=== PATIENT | female | born 1990 | race American Indian/Alaskan Native ===

== ENCOUNTER 2016-10-03 22:16 | Emergency (ER) | payer OTHER ==
[2016-10-03 22:31] VITALS: BMI 28.9
[2016-10-03] MEDS ORDERED: Sodium Chloride 0.9% 1,000 ML IV STA (22:39)
--- NOTE | 2016-10-03 22:40 | ED PDOC ---
Arrival/HPI - General Chief Complaint: GI Problem Time Seen by Provider: 10/03/16 22:18 Historian: Patient - History of Present Illness Narrative History of Present Illness (Text): 10/03/16 22:36 Rolando Dobbisn is a 26 year old female, whose past medical history includes cholecystectomy, who presents to the ED complaining of abdominal cramping since 05:00 this morning. Patient also reports she has been experiencing associated nausea and vomiting. Patient states she had steak for dinner the evening prior. Patient denies any fever, chills, chest pain, shortness of breath, urinary symptoms, back pain, neck pain, headache, dizziness, or any other complaints. Time/Duration: Other (05:00 this morning) Symptom Onset: Gradual Symptom Course: Unchanged Quality: Cramping Activities at Onset: Light, Eating Context: Home Past Medical History - Provider Review Nursing Documentation Reviewed: Yes - Infectious Disease Hx of Infectious Diseases: None - Psychiatric Hx Substance Use: No - Surgical History Hx Cholecystectomy: Yes - Anesthesia Hx Anesthesia: Yes Hx Anesthesia Reactions: No Hx Malignant Hyperthermia: No Family/Social History - Physician Review Nursing Documentation Reviewed: Yes Family/Social History: No Known Family HX Smoking Status: Never Smoked Hx Alcohol Use: No Hx Substance Use: No Allergies/Home Meds Allergies/Adverse Reactions: Allergies No Known Allergies Allergy (Verified 10/03/16 22:31) Review of Systems - Physician Review All systems were reviewed & negative as marked: Yes - Review of Systems Constitutional: Normal. absent: Fevers Eyes: Normal ENT: Normal Respiratory: Normal. absent: SOB, Cough Cardiovascular: Normal. absent: Chest Pain Gastrointestinal: Abdominal Pain, Nausea, Vomiting Genitourinary Female: Normal. absent: Dysuria, Frequency, Hematuria, Urine Output Changes Musculoskeletal: Normal. absent: Back Pain, Neck Pain Skin: Normal. absent: Rash Neurological: Normal. absent: Headache, Dizziness Endocrine: Normal Hemo/Lymphatic: Normal Psychiatric: Normal Physical Exam Vital Signs Reviewed: Yes Vital Signs Temp Pulse Resp BP Pulse Ox 10/04/16 01:00 73 17 96/54 L 99 10/03/16 22:42 98.6 F 83 18 104/53 L 100 Temperature: Afebrile Blood Pressure: Normal Pulse: Regular Respiratory Rate: Normal Appearance: Positive for: Well-Appearing, Non-Toxic, Comfortable Pain Distress: None Mental Status: Positive for: Alert and Oriented X 3 - Systems Exam Head: Present: Atraumatic, Normocephalic Pupils: Present: PERRL Extroacular Muscles: Present: EOMI Conjunctiva: Present: Normal Mouth: Present: Moist Mucous Membranes Neck: Present: Normal Range of Motion Respiratory/Chest: Present: Clear to Auscultation, Good Air Exchange. No: Respiratory Distress, Accessory Muscle Use Cardiovascular: Present: Regular Rate and Rhythm, Normal S1, S2. No: Murmurs Abdomen: Present: Normal Bowel Sounds. No: Tenderness, Distention, Peritoneal Signs Back: Present: Normal Inspection Upper Extremity: Present: Normal Inspection. No: Cyanosis, Edema Lower Extremity: Present: Normal Inspection. No: Edema Neurological: Present: GCS=15, CN II-XII Intact, Speech Normal Skin: Present: Warm, Dry, Normal Color. No: Rashes Psychiatric: Present: Alert, Oriented x 3, Normal Insight, Normal Concentration Medical Decision Making ED Course and Treatment: 10/03/16 22:36 Impression: 26 year old female complaining of abdominal cramping, nausea, and vomiting since 05:00 today. Differential Diagnosis include but are not limited to: gastritis Plan: -- Labs, lipase -- Urinalysis -- IV fluids -- Zofran -- Pepcid -- Reassess and disposition Progress Notes: 10/04/16 01:00 Reviewed labs, no acute abnormalities. 10/04/16 01:40 On re-evaluation, the patient feels better and is in no acute distress. I have discussed the results and plan with the patient, who expresses understanding. Patient in agreement with plan to discharged home. Patient is stable for discharge. Patient was instructed to follow up with physician/clinic in 1-2 days or return if symptoms worsen or new concerning symptoms arise. - Lab Interpretations Lab Results: 10/03/16 23:20 10/03/16 23:20 Lab Results 10/03/16 23:20: WBC 4.4 L, RBC 4.47, Hgb 13.9, Hct 40.1, MCV 89.7, MCH 31.1, MCHC 34.7, RDW 12.4, Plt Count 258, MPV 9.6, Sodium 132, Potassium 3.7, Chloride 99, Carbon Dioxide 23, Anion Gap 14, BUN 12, Creatinine 0.8, Est GFR ( Amer) > 60, Est GFR (Non-Af Amer) > 60, Random Glucose 99, Calcium 8.9, Total Bilirubin 1.1, AST 32, ALT 28, Alkaline Phosphatase 58, Total Protein 8.2 , Albumin 4.3, Globulin 3.9, Albumin/Globulin Ratio 1.1, Lipase 59, Urine Color Yellow, Urine Appearance Clear, Urine pH 6.0, Ur Specific [place] >= 1.030, Urine Protein Trace H, Urine Glucose (UA) Negative, Urine Ketones 15 H, Urine Blood Negative, Urine Nitrate Negative, Urine Bilirubin Negative, Urine Urobilinogen 0.2, Ur Leukocyte Esterase Negative, Urine RBC 0 - 2, Urine WBC 0 - 2, Ur Epithelial Cells 0 - 2, Urine Bacteria Rare, Urine Other Mucus, Urine HCG, Qual Negative I have reviewed the lab results: Yes - Medication Orders Current Medication Orders: Discontinued Medications Famotidine (Pepcid) 20 mg IVP STAT STA Stop: 10/03/16 22:40 Last Admin: 10/03/16 23:27 Dose: 20 MG IVP Administration Document 10/03/16 23:27 MR (Rec: 10/03/16 23:27 [place] [id number]) Charges for Administration # of IVP Administrations 1 Sodium Chloride (Sodium Chloride 0.9%) 1,000 mls @ 999 mls/hr IV .Q1H1M STA Stop: 10/03/16 23:39 Last Admin: 10/03/16 23:28 Dose: 999 MLS/HR eMAR Start Stop Document 10/03/16 23:28 MR (Rec: 10/03/16 23:28 [place] [id number]) Intravenous Solution Start Date 10/03/16 Start Time 23:28 End Date 10/04/16 End time 00:28 Total Infusion Time 60 Ondansetron HCl (Zofran Inj) 4 mg IVP ONCE ONE Stop: 10/03/16 22:40 Last Admin: 10/03/16 23:27 Dose: 4 MG IVP Administration Document 10/03/16 23:27 MR (Rec: 10/03/16 23:27 [place] [id number]) Charges for Administration # of IVP Administrations 1 - Scribe Statement The provider has reviewed the documentation as recorded by the Cristal Guerrero Provider Attestation: All medical record entries made by the Scribe were at my direction and personally dictated by me. I have reviewed the chart and agree that the record accurately reflects my personal performance of the history, physical exam, medical decision making, and the department course for this patient. I have also personally directed, reviewed, and agree with the discharge instructions and disposition. Disposition/Present on Arrival - Present on Arrival Any Indicators Present on Arrival: No History of DVT/PE: No History of Uncontrolled Diabetes: No Urinary Catheter: No History of Decub. Ulcer: No History Surgical Site Infection Following: None - Disposition Have Diagnosis and Disposition been Completed?: Yes Diagnosis: Gastritis Disposition: HOME/ ROUTINE Disposition Time: 01:41 Patient Plan: Discharge Condition: STABLE Discharge Instructions (ExitCare): Gastritis (ED) Additional Instructions: Take meds as prescribed/[place] diet next 1-2 days/Advance diet slowly as tolerated/follow up with your doctor Prescriptions: Ondansetron [Zofran Odt] 4 mg PO Q6 PRN #12 odt PRN Reason: Nausea/Vomiting
[2016-10-03 22:43] VITALS: TEMP 98.6
[2016-10-03 23:55] LABS: HEMATOCRIT 40.1 % (36.0-48.0); MEAN CELL VOLUME 89.7 fL (80.0-105.0); MEAN CORPUSCULAR HEMOGLOBIN 31.1 pg (25.0-35.0); MEAN CORPUSCULAR HGB CONC 34.7 g/dl (31.0-37.0); MEAN PLATELET VOLUME 9.6 fl (7.0-11.0); RED CELL DISTRIBUTION WIDTH 12.4 % (11.5-14.5); WHITE BLOOD COUNT 4.4 10^3/ul (4.5-11.0)
[2016-10-03 23:57] LABS: URINE BILIRUBIN NEGATIVE (NEGATIVE); URINE BLOOD NEGATIVE (NEGATIVE); URINE GLUCOSE (UA) NEGATIVE (NEGATIVE); URINE KETONE 15 mg/dL (NEGATIVE); URINE LEUKOCYTE ESTERASE NEGATIVE Leu/uL (NEGATIVE); URINE PROTEIN TRACE mg/dL (<30 mg/dL); URINE UROBILINOGEN 0.2 E.U./dL (<1 E.U./dL)
[2016-10-03 23:59] LABS: URINE APPEARANCE CLEAR (CLEAR); URINE COLOR YELLOW (YELLOW)
[2016-10-04 00:02] LABS: ALB/GLOB RATIO 1.1 (1.1-1.8); ALKALINE PHOSPHATASE 58 U/L (38-133); ALT/SGPT 28 U/L (7-56); AST/SGOT 32 U/L (15-39); BILIRUBIN,TOTAL 1.1 mg/dL (0.2-1.3); BLOOD UREA NITROGEN 12 mg/dL (7-21); CALCIUM 8.9 mg/dL (8.4-10.5); CARBON DIOXIDE 23 mmol/L (21-33); CHLORIDE 99 mmol/L (98-107); GFR AFRICAN-AMERICAN > 60; GLUCOSE,RANDOM 99 mg/dL (70-110); LIPASE 59 U/L (23-300); POTASSIUM 3.7 mmol/L (3.6-5.0); SODIUM 132 mmol/L (132-148); TOTAL PROTEIN 8.2 g/dL (5.8-8.3)
[2016-10-04 00:10] LABS: URINE BACTERIA RARE (NEG); URINE EPITHELIAL CELLS 0 - 2 /hpf (0-5); URINE RBC 0 - 2 /hpf (0-2); URINE WBC 0 - 2 /hpf (0-6)
[2016-10-04 01:02] VITALS: PULSE 73; RESP 17
[2016-10-04 01:03] VITALS: BP 96/54; O2SAT 99
== END 2016-10-04 02:00 | disposition home or self-care (01) ==
LOC: MERGE 22:16 → ED 22:16
DX: K29.70 Gastritis, unspecified, without bleeding (principal)
CPT/HCPCS: 80053; 81001; 83690; 84703; 85027; 96361; 96374; 96375; 99284; J2405; J7040

== ENCOUNTER 2017-07-08 01:43 | Emergency (ER) | payer OTHER ==
[2017-07-08 02:03] VITALS: BP 117/68; TEMP 98.7; BMI 25.7
--- NOTE | 2017-07-08 02:27 | ED PDOC ---
Arrival/HPI - General Chief Complaint: Palpitations Time Seen by Provider: 07/08/17 02:11 Historian: Patient - History of Present Illness Narrative History of Present Illness (Text): 07/08/17 02:26 A 27 year old female presents to the emergency department complaining of chest tightness and vomiting. Patient reports she went to another hospital for fever and flu like symptoms, which is currently resolved, and was discharged about two hours ago with medication. Reports chest tightness and vomiting developed after taking medication from that hospital. Patient denies any other complaints at this time. Symptom Onset: Sudden Symptom Course: Unchanged Activities at Onset: Rest Context: Home Past Medical History - Provider Review Nursing Documentation Reviewed: Yes - Infectious Disease Hx of Infectious Diseases: None - Cardiac Hx Hypertension: No - Psychiatric Hx Substance Use: No - Surgical History Hx Cholecystectomy: Yes - Anesthesia Hx Anesthesia: Yes Hx Anesthesia Reactions: No Hx Malignant Hyperthermia: No - Suicidal Assessment Feels Threatened In Home Enviroment: No Family/Social History - Physician Review Nursing Documentation Reviewed: Yes Family/Social History: No Known Family HX Smoking Status: Never Smoked Hx Alcohol Use: No Hx Substance Use: No Allergies/Home Meds Allergies/Adverse Reactions: Allergies No Known Allergies Allergy (Verified 07/08/17 02:03) Home Medications: Home Meds Medication Instructions Recorded Confirmed No Known Home Med 07/08/17 07/08/17 Review of Systems - Physician Review All systems were reviewed & negative as marked: Yes - Review of Systems Constitutional: absent: Fevers Cardiovascular: Other (chest tightness) Gastrointestinal: Vomiting Physical Exam Vital Signs Reviewed: Yes Vital Signs Temp Pulse Resp BP Pulse Ox 07/08/17 03:00 93 H 18 99 07/08/17 02:04 98.7 F 120 H 24 117/68 100 07/08/17 02:00 98.7 F 120 H 23 117/68 100 Temperature: Afebrile Blood Pressure: Normal Pulse: Tachycardic Respiratory Rate: Normal Appearance: Positive for: Well-Appearing, Non-Toxic, Comfortable Pain Distress: None Mental Status: Positive for: Alert and Oriented X 3 - Systems Exam Head: Present: Atraumatic, Normocephalic Pupils: Present: PERRL Extroacular Muscles: Present: EOMI Conjunctiva: Present: Normal Mouth: Present: Moist Mucous Membranes Neck: Present: Normal Range of Motion Respiratory/Chest: Present: Clear to Auscultation, Good Air Exchange. No: Respiratory Distress, Accessory Muscle Use Cardiovascular: Present: Regular Rate and Rhythm, Normal S1, S2. No: Murmurs Abdomen: Present: Normal Bowel Sounds. No: Tenderness, Distention, Peritoneal Signs Back: Present: Normal Inspection Upper Extremity: Present: Normal Inspection. No: Cyanosis, Edema Lower Extremity: Present: Normal Inspection. No: Edema Neurological: Present: GCS=15, CN II-XII Intact, Speech Normal Skin: Present: Warm, Dry, Normal Color. No: Rashes Psychiatric: Present: Alert, Oriented x 3, Normal Concentration, Anxious Medical Decision Making ED Course and Treatment: 07/08/17 02:25 Impression: A 27 year old female with chest tightness and vomiting. Plan: -- chest xray -- Reassess and disposition Prior Visits: Notes and results from previous visits were reviewed. Patient was last seen in the emergency department on 10/03/16 for evaluation of abdominal pain, nausea and vomiting. Progress Notes: - RAD Interpretation Radiology Orders: 07/08/17 02:20 CHEST PORTABLE [RAD] Stat - Scribe Statement The provider has reviewed the documentation as recorded by the Scribe Sourav Pacheco Provider Scribe Attestation: All medical record entries made by the Scribe were at my direction and personally dictated by me. I have reviewed the chart and agree that the record accurately reflects my personal performance of the history, physical exam, medical decision making, and the department course for this patient. I have also personally directed, reviewed, and agree with the discharge instructions and disposition. Disposition/Present on Arrival - Present on Arrival Any Indicators Present on Arrival: No History of DVT/PE: No History of Uncontrolled Diabetes: No Urinary Catheter: No History of Decub. Ulcer: No History Surgical Site Infection Following: None - Disposition Have Diagnosis and Disposition been Completed?: Yes Diagnosis: Anxiety Disposition: HOME/ ROUTINE Disposition Time: 03:15 Condition: IMPROVED Forms: [employer] (Albanian)
[2017-07-08 03:00] VITALS: PULSE 93; RESP 18; O2SAT 99
--- NOTE | 2017-07-08 08:49 | RAD ---
HISTORY: Abdominal pain, flu-like symptoms COMPARISON: No prior. FINDINGS: LUNGS: No active pulmonary disease. PLEURA: No significant pleural effusion identified, no pneumothorax apparent. CARDIOVASCULAR: Normal. OSSEOUS STRUCTURES: No significant abnormalities. VISUALIZED UPPER ABDOMEN: Normal. OTHER FINDINGS: None. IMPRESSION: No active disease.
--- NOTE | 2017-07-08 18:24 | CARD ---
APPROVED REPORT EKG Measurement Heart [id number] <Conclusion> Sinus tachycardia Possible Left atrial enlargement Borderline ECG
== END 2017-07-08 03:20 | disposition home or self-care (01) ==
LOC: ED 01:43
DX: F41.9 Anxiety disorder, unspecified (principal)

== ENCOUNTER 2017-07-20 01:14 | Emergency (ER) | payer OTHER ==
[2017-07-20 01:15] VITALS: BMI 25.7
[2017-07-20] MEDS ORDERED: Sodium Chloride 0.9% 1,000 ML IV STA (02:11)
--- NOTE | 2017-07-20 02:13 | ED PDOC ---
Arrival/HPI - General Time Seen by Provider: 07/20/17 02:02 Historian: Patient - History of Present Illness Narrative History of Present Illness (Text): 07/20/17 02:09 27 year old female, with no significant past medical history, presents to the Emergency department for evaluation of episodes of vomiting past 24 hrs.Some diarrhea prior none recently. Patient states occasional tingling to the arms and hands. Patient additionally informs mild epigastric discomfort describes as cramping. Patient denies any fever, chills, chest pain, shortness of breath or any other complaints. Patient has a past surgical history of cholecystectomy. Time/Duration: 24 hours Symptom Onset: Gradual Symptom Course: Unchanged Activities at Onset: Light Context: Home Past Medical History - Provider Review Nursing Documentation Reviewed: Yes - Infectious Disease Hx of Infectious Diseases: None - Cardiac Hx Hypertension: No - Psychiatric Hx Substance Use: No - Surgical History Hx Cholecystectomy: Yes - Anesthesia Hx Anesthesia: Yes Hx Anesthesia Reactions: No Hx Malignant Hyperthermia: No - Suicidal Assessment Feels Threatened In Home Enviroment: No Family/Social History - Physician Review Nursing Documentation Reviewed: Yes Family/Social History: No Known Family HX Smoking Status: Never Smoked Hx Alcohol Use: No Hx Substance Use: No Allergies/Home Meds Allergies/Adverse Reactions: Allergies No Known Allergies Allergy (Verified 07/11/17 13:42) Review of Systems - Physician Review All systems were reviewed & negative as marked: Yes - Review of Systems Constitutional: Normal. absent: Fevers Eyes: Normal ENT: Normal Respiratory: Normal. absent: SOB Cardiovascular: Normal. absent: Chest Pain Gastrointestinal: Abdominal Pain, Diarrhea, Vomiting Genitourinary Female: Normal Musculoskeletal: Normal Skin: Normal Neurological: Normal Endocrine: Normal Hemo/Lymphatic: Normal Psychiatric: Normal Physical Exam Vital Signs Temp Pulse Resp BP Pulse Ox 07/20/17 05:45 98.7 F 70 16 128/72 100 07/20/17 01:15 98.7 F 81 16 116/60 98 - Systems Exam Head: Present: Atraumatic, Normocephalic Pupils: Present: PERRL Extroacular Muscles: Present: EOMI Conjunctiva: Present: Normal Mouth: Present: Moist Mucous Membranes Neck: Present: Normal Range of Motion Respiratory/Chest: Present: Clear to Auscultation, Good Air Exchange. No: Respiratory Distress, Accessory Muscle Use Cardiovascular: Present: Regular Rate and Rhythm, Normal S1, S2. No: Murmurs Abdomen: Present: Normal Bowel Sounds. No: Tenderness, Distention, Peritoneal Signs Back: Present: Normal Inspection Upper Extremity: Present: Normal Inspection. No: Cyanosis, Edema Lower Extremity: Present: Normal Inspection. No: Edema Neurological: Present: GCS=15, CN II-XII Intact, Speech Normal Skin: Present: Warm, Dry, Normal Color. No: Rashes Psychiatric: Present: Alert, Oriented x 3, Normal Insight, Normal Concentration Medical Decision Making ED Course and Treatment: 07/20/17 02:14 Impression: 27 year old female presents to the Emergency department for vomiting , diarrhea and abdominal pain. Plan: -- Labs -- Pepcid -- IV Fluids -- Zofran -- Urinalysis, hCG -- Reassess and disposition Progress Notes: - Lab Interpretations Lab Results: 07/20/17 04:00 07/20/17 04:00 Lab Results 07/20/17 04:00: WBC 4.9, RBC 4.01, Hgb 12.3, Hct 36.9, MCV 92.0, MCH 30.7, MCHC 33.3, RDW 12.5, Plt Count 426, MPV 9.7 07/20/17 04:00: Sodium 141, Potassium 3.8, Chloride 104, Carbon Dioxide 30, Anion Gap 12, BUN 10, Creatinine 0.7, Est GFR ( Amer) > 60, Est GFR (Non- Af Amer) > 60, Random Glucose 107, Calcium 9.7, Total Bilirubin 0.5, AST 32, ALT 39, Alkaline Phosphatase 46, Total Protein 8.2, Albumin 4.4, Globulin 3.7, Albumin/Globulin Ratio 1.2, Lipase 49 07/20/17 04:00: Urine Color Yellow, Urine Appearance Clear, Urine pH 6.5, Ur Specific [place] 1.020, Urine Protein Trace H, Urine Glucose (UA) Negative, Urine Ketones 15 H, Urine Blood Negative, Urine Nitrate Negative, Urine Bilirubin Negative, Urine Urobilinogen 0.2, Ur Leukocyte Esterase Negative, Urine RBC 0 - 2, Urine WBC 1 - 3, Ur Epithelial Cells 1 - 3, Urine Bacteria Mod , Urine HCG, Qual Negative - Medication Orders Current Medication Orders: Discontinued Medications Famotidine (Pepcid) 20 mg IVP STAT STA Stop: 07/20/17 02:12 Last Admin: 07/20/17 04:36 Dose: Sodium Chloride (Sodium Chloride 0.9%) 1,000 mls @ 999 mls/hr IV .Q1H1M STA Stop: 07/20/17 03:11 Last Admin: 07/20/17 04:36 Dose: Ketorolac Tromethamine (Toradol) 30 mg IVP ONCE ONE Stop: 07/20/17 05:11 Last Admin: 07/20/17 05:40 Dose: Ondansetron HCl (Zofran Inj) 4 mg IVP ONCE ONE Stop: 07/20/17 02:12 Last Admin: 07/20/17 04:36 Dose: - Scribe Statement The provider has reviewed the documentation as recorded by the Scribe Violette Bajwa. All medical record entries made by the Burtibe were at my direction and personally dictated by me. I have reviewed the chart and agree that the record accurately reflects my personal performance of the history, physical exam, medical decision making, and the department course for this patient. I have also personally directed, reviewed, and agree with the discharge instructions and disposition. Disposition/Present on Arrival - Present on Arrival Any Indicators Present on Arrival: No History of DVT/PE: No History of Uncontrolled Diabetes: No Urinary Catheter: No History Surgical Site Infection Following: None - Disposition Have Diagnosis and Disposition been Completed?: Yes Diagnosis: Gastritis Disposition: HOME/ ROUTINE Disposition Time: 05:35 Patient Plan: Discharge Condition: GOOD Discharge Instructions (ExitCare): Gastritis (ED) Additional Instructions: Take meds as prescribed/advance diet slowly as tolerated/follow up with your doctor this week Prescriptions: Phenobarb/Hyoscy/Atropine/Scop [ Tablet] 16.2 mg PO Q6 PRN #12 tablet PRN Reason: Dyspepsia Ondansetron [Zofran Odt] 4 mg PO Q6 PRN #12 odt PRN Reason: Nausea/Vomiting Forms: [facility] ([place]ian)
[2017-07-20 04:35] VITALS: RESP 16; TEMP 98.7
[2017-07-20 04:49] LABS: HEMOGLOBIN 12.3 g/dL (12.0-16.0); MEAN CORPUSCULAR HEMOGLOBIN 30.7 pg (25.0-35.0); MEAN CORPUSCULAR HGB CONC 33.3 g/dl (31.0-37.0); MEAN PLATELET VOLUME 9.7 fl (7.0-11.0); RBC 4.01 10^6/uL (3.5-6.1); RED CELL DISTRIBUTION WIDTH 12.5 % (11.5-14.5); WHITE BLOOD COUNT 4.9 10^3/ul (4.5-11.0)
[2017-07-20 04:50] LABS: PH,URINE 6.5 (4.7-8.0); URINE BILIRUBIN NEGATIVE (NEGATIVE); URINE BLOOD NEGATIVE (NEGATIVE); URINE GLUCOSE (UA) NEGATIVE (NEGATIVE); URINE LEUKOCYTE ESTERASE NEGATIVE Leu/uL (NEGATIVE); URINE NITRATE NEGATIVE (NEGATIVE); URINE PROTEIN TRACE mg/dL (<30 mg/dL); URINE UROBILINOGEN 0.2 E.U./dL (<1 E.U./dL)
[2017-07-20 04:53] LABS: ALB/GLOB RATIO 1.2 (1.1-1.8); ALBUMIN 4.4 g/dL (3.0-4.8); ALT/SGPT 39 U/L (7-56); AST/SGOT 32 U/L (14-36); BLOOD UREA NITROGEN 10 mg/dL (7-21); CALCIUM 9.7 mg/dL (8.4-10.5); GFR AFRICAN-AMERICAN > 60; GFR NON-AFRICAN AMERICAN > 60; LIPASE 49 U/L (23-300)
[2017-07-20 04:57] LABS: URINE APPEARANCE CLEAR (CLEAR)
[2017-07-20 04:58] LABS: URINE COLOR YELLOW (YELLOW)
[2017-07-20 05:07] LABS: HCG,QUALITATIVE URINE NEGATIVE (NEGATIVE)
[2017-07-20 05:11] LABS: URINE BACTERIA MOD (NEG); URINE RBC 0 - 2 /hpf (0-2)
[2017-07-20 05:46] VITALS: BP 128/72; PULSE 70; O2SAT 100
== END 2017-07-20 05:45 | disposition home or self-care (01) ==
LOC: ED 01:14
DX: K29.70 Gastritis, unspecified, without bleeding (principal)